=== PATIENT | female | born 1960 | race Caucasian/White ===

== ENCOUNTER 2017-05-05 19:05 | Emergency (ER) | payer BC ==
[~2017-05-05] VITALS: Ht 167.6 cm; Wt 75.7 kg
[~2017-05-05 19:05] MED LIST: ASPI-630 PO; LEVO75TA PO; OMEP20CA9 PO; SIMV40TA3 PO; methylfolate PO
--- NOTE | 2017-05-05 20:12 | PHYS DOC ---
Past Medical History Past Medical History: Cancer Additional Past Medical Histor: Breast CA Past Surgical History: Other Additional Past Surgical Histo: Port placement & removal, Bilat mastectomy, hysterectomy Alcohol Use: None Drug Use: None Adult General Chief Complaint Chief Complaint: MECHANICAL FALL HPI HPI Patient is a 56 year old female presents to the ED complaining of head injury x 1 hour ago. States she was walking into the movie and tripped outside over her feet and hit her face on the concrete. Describes the pain as sharp. Rates the pain as 6/10. Denies LOC, vision changes, n/v, dizziness, weakness, chest pain, shortness of breath, neck pain, or symptoms prior to fall. Patient does not take any blood thinners. Review of Systems Review of Systems Constitutional: Denies fever or chills [] Eyes: Denies change in visual acuity, redness, or eye pain [] HENT: Complains of nose pain. Denies nasal congestion or sore throat [] Respiratory: Denies cough or shortness of breath [] Cardiovascular: No additional information not addressed in HPI [] GI: Denies abdominal pain, nausea, vomiting, bloody stools or diarrhea [] : Denies dysuria or hematuria [] Musculoskeletal: Denies back pain or joint pain [] Integument: Denies rash or skin lesions [] Neurologic: Denies headache, focal weakness or sensory changes [] Endocrine: Denies polyuria or polydipsia [] All other systems were reviewed and found to be within normal limits, except as documented in this note. Current Medications Current Medications Current Medications Medications (Trade) Dose Ordered Sig/Willie Start Time Stop Time Status Last Admin Dose Admin Tramadol HCl (Ultram) 50 mg 1X ONCE 05/05/17 20:15 05/05/17 20:16 DC 05/05/17 20:11 50 MG Allergies Allergies Allergies Coded Allergies Type Severity Reaction Last Updated Verified meperidine Adverse Reaction Mild vomiting 03/15/17 Yes Physical Exam Physical Exam Constitutional: Well developed, well nourished, no acute distress, non-toxic appearance. [] HENT: Normocephalic, atraumatic, bilateral external ears normal, oropharynx moist, no oral exudates, ABRASION TO BRIDGE OF NOSE. NO REPAIRABLE LACERATION. MILD NASAL BONE TENDERNESS/SWELLING. NO SEPTAL HEMATOMA. [] Eyes: PERRLA, EOMI, conjunctiva normal, no discharge. [] Neck: Normal range of motion, no tenderness, supple, no stridor. [] Cardiovascular:Heart rate regular rhythm, no murmur [] Lungs & Thorax: Bilateral breath sounds clear to auscultation [] Abdomen: Bowel sounds normal, soft, no tenderness, no masses, no pulsatile masses. [] Skin: Warm, dry, no erythema, no rash. [] Back: No tenderness, no CVA tenderness. [] Extremities: No tenderness, no cyanosis, no clubbing, ROM intact, no edema. [] Neurologic: Alert and oriented X 3, normal motor function, normal sensory function, no focal deficits noted. [] Psychologic: Affect normal, judgement normal, mood normal. [] Current Patient Data Vital Signs Vital Signs Date Time Temp Pulse Resp B/P (MAP) Pulse Ox O2 Delivery O2 Flow Rate FiO2 05/05/17 20:40 79 16 96 05/05/17 19:15 97.6 Room Air 97.6 EKG EKG [] Radiology/Procedures Radiology/Procedures PROCEDURE: CT HEAD AND MAXILLOFACIAL WO CT HEAD AND MAXILLOFACIAL WO Clinical indications: fall head/nose injury COMPARISON: None available. NONCONTRAST HEAD CT COMPARISON: None available. Technique: Noncontrast axial cross sectional scanning of the head was performed. PQRS compliance Statement One or more of the following individualized dose reduction techniques were utilized for these studies: 1. Automated exposure control 2. Adjustment of the mA and/or kV according to patient size 3. Use of iterative reconstruction technique Findings: No acute intracranial hemorrhage or midline shift or mass-effect or hydrocephalus or extra-axial fluid collection is seen. No focal hypodense area or sulci effacement is seen to indicate an acute infarct or edema radiographically. No skull fracture or pneumocephalus is seen. No opacification of the mastoid sinuses or the middle ear cavities is seen. Impression: No acute intracranial abnormality is seen. CT STUDY OF THE MAXILLOFACIAL BONES WITHOUT CONTRAST TECHNIQUE: Noncontrast helical CT scanning of the maxillofacial bones was performed. Multiplanar 2-D reconstructions were generated. FINDINGS: There are nondepressed fractures of the anterior tip of the nasal bone on both sides. There is severe nasal septal deviation with the convexity pointed towards the right side. Zygoma and zygomatic arch is intact on both sides. The orbits and pterygoid plates and maxilla and nasal spine are intact. No opacification or air-fluid levels of the paranasal sinuses is seen. The mandible is intact. The temporomandibular joints are normally aligned. IMPRESSION: Nondepressed fracture of the tip of the nasal bone on both sides. Nasal septal deviation.[] Course & Med Decision Making Course & Med Decision Making Pertinent Labs and Imaging studies reviewed. (See chart for details) []Discussed imaging findings with patient. Patient's pain improved. Vital stable , no acute distress. Discussed symptomatic treatment. Tetanus up to date. Discussed follow-up with [facility] for further evaluation early next week. Provided contact information/education. Discussed reasons to return to the ED. Patient understands and agrees with plan. at bedside. Dragon Disclaimer Anika Disclaimer This electronic medical record was generated, in whole or in part, using a voice recognition dictation system. Departure Departure Impression: Primary Impression: Nasal bone fracture Disposition: 01 HOME, SELF-CARE Condition: IMPROVED Referrals: MEGAN CONN (PCP) PATSY GALARZA DDS Patient Instructions: Nasal Fracture Scripts Tramadol Hcl (TRAMADOL HCL) 50 Mg Tablet 1 TAB PO PRN Q6HRS, #12 TAB Prov: ANIKET BELLA 05/05/17 ANIKET BELLA May 05, 2017 20:12
[2017-05-05] MEDS ORDERED: traMADol 50 MG TABLET PO ONE (20:15)
--- NOTE | 2017-05-05 20:18 | RAD ---
CT HEAD AND MAXILLOFACIAL WO Clinical indications: fall head/nose injury COMPARISON: None available. NONCONTRAST HEAD CT COMPARISON: None available. Technique: Noncontrast axial cross sectional scanning of the head was performed. RS compliance Statement One or more of the following individualized dose reduction techniques were utilized for these studies: 1. Automated exposure control 2. Adjustment of the mA and/or kV according to patient size 3. Use of iterative reconstruction technique Findings: No acute intracranial hemorrhage or midline shift or mass-effect or hydrocephalus or extra-axial fluid collection is seen. No focal hypodense area or sulci effacement is seen to indicate an acute infarct or edema radiographically. No skull fracture or pneumocephalus is seen. No opacification of the mastoid sinuses or the middle ear cavities is seen. Impression: No acute intracranial abnormality is seen. CT STUDY OF THE MAXILLOFACIAL BONES WITHOUT CONTRAST TECHNIQUE: Noncontrast helical CT scanning of the maxillofacial bones was performed. Multiplanar 2-D reconstructions were generated. FINDINGS: There are nondepressed fractures of the anterior tip of the nasal bone on both sides. There is severe nasal septal deviation with the convexity pointed towards the right side. Zygoma and zygomatic arch is intact on both sides. The orbits and pterygoid plates and maxilla and nasal spine are intact. No opacification or air-fluid levels of the paranasal sinuses is seen. The mandible is intact. The temporomandibular joints are normally aligned. IMPRESSION: Nondepressed fracture of the tip of the nasal bone on both sides. Nasal septal deviation. Electronically signed by: Elias Ny MD (05/05/2017 8:14 PM) [facility]
[2017-05-05] MEDS ORDERED: TRAM50TA PO (20:26)
[2017-05-05 20:40] VITALS: BP 156/97
== END 2017-05-05 20:44 | disposition home or self-care (01) ==
LOC: ER 19:05
DX: S02.2XXA Fracture of nasal bones, initial encounter for closed fracture (principal); Z88.8 Allergy status to other drugs, medicaments and biological substances; Z90.710 Acquired absence of both cervix and uterus; Z90.13 Acquired absence of bilateral breasts and nipples; W22.8XXA Striking against or struck by other objects, initial encounter; Y93.01 Activity, walking, marching and hiking; Y92.89 Other specified places as the place of occurrence of the external cause; Y99.8 Other external cause status
CPT/HCPCS: 70450; 70486; 99284-25

== ENCOUNTER 2018-09-12 18:22 | Emergency (ER) | payer BC ==
[~2018-09-12] VITALS: Ht 167.6 cm; Wt 77.1 kg
[~2018-09-12 18:22] MED LIST changes: +OMEP20CA10 PO; -OMEP20CA9 PO; +TRAM50TA PO
[2018-09-12 18:29] VITALS: BP 163/96
--- NOTE | 2018-09-12 20:04 | PHYS DOC ---
Past Medical History Past Medical History: Cancer, Hypothyroid, Other Additional Past Medical Histor: Breast CA Past Surgical History: Other Additional Past Surgical Histo: Port placement & removal, Bilat mastectomy,BREAST IMPLANTS Alcohol Use: None Drug Use: None Adult General Chief Complaint Chief Complaint: EARACHE/EAR PAIN HPI HPI Patient is a 58 year old female who presents to the ED with the chief complaint of left ear pain. Patient states that the hip and has been present for the last 6 days. Patient denies cough, cold, congestion, sore throat. Review of Systems Review of Systems Constitutional: Denies fever or chills [] Eyes: Denies change in visual acuity, redness, or eye pain [] HENT: Complains of left ear pain. Respiratory: Denies cough or shortness of breath [] Cardiovascular: No additional information not addressed in HPI [] GI: Denies abdominal pain, nausea, vomiting, bloody stools or diarrhea [] : Denies dysuria or hematuria [] Musculoskeletal: Denies back pain or joint pain [] Integument: Denies rash or skin lesions [] Neurologic: Denies headache, focal weakness or sensory changes [] Endocrine: Denies polyuria or polydipsia [] All other systems were reviewed and found to be within normal limits, except as documented in this note. Allergies Allergies Allergies Coded Allergies Type Severity Reaction Last Updated Verified meperidine Adverse Reaction Mild vomiting 03/15/17 Yes Physical Exam Physical Exam Constitutional: Well developed, well nourished, no acute distress, non-toxic appearance. HENT: Normocephalic, atraumatic, normocaphalic, left ear has cerumen impaction Eyes: EOMI Neck: Normal range of motion, no tenderness, supple Cardiovascular:Heart rate regular rhythm, no murmur Resp: Bilateral breath sounds clear to auscultation Abdomen: Soft, no tenderness, no distension Skin: Warm, dry, no erythema, no rash. Back: No tenderness, no CVA tenderness. Extremities: No tenderness, ROM intact, no edema. Neurologic: Alert and oriented X 3 Current Patient Data Vital Signs Vital Signs Date Time Temp Pulse Resp B/P (MAP) Pulse Ox O2 Delivery O2 Flow Rate FiO2 09/12/18 18:29 98.8 82 18 163/96 (118) 96 Room Air 98.8 EKG EKG [] Radiology/Procedures Radiology/Procedures [] Course & Med Decision Making Course & Med Decision Making Irrigated left ear. Not much cerumen evacuated. Discussed plan of care with patient and family. Patient buy [id number] earwax removal medication. Discussed plan of care with patient. Patient is instructed to follow up with PCP in one to 2 days. Appropriate discharge instructions given to patient to return to the ED or to seek immediate medical evaluation. Dragon Disclaimer Dragon Disclaimer This electronic medical record was generated, in whole or in part, using a voice recognition dictation system. Departure Departure Referrals: MEGAN CONN (PCP) JOCELYNE LANIER DO September 12, 2018 20:04
== END 2018-09-12 20:14 | disposition home or self-care (01) ==
LOC: ER 18:22
DX: H61.22 Impacted cerumen, left ear (principal); E03.9 Hypothyroidism, unspecified; Z88.1 Allergy status to other antibiotic agents
CPT/HCPCS: 69209; 99282; 99283-25

== ENCOUNTER 2021-09-06 06:22 | Emergency (ER) | payer BC ==
[~2021-09-06] VITALS: Ht 167.6 cm; Wt 70.0 kg
[~2021-09-06 06:22] MED LIST changes: -LEVO75TA PO; +LEVO75TA90 PO; -OMEP20CA10 PO; +OMEP20CA16 PO; +SIMV40TA18 PO; -SIMV40TA3 PO
[2021-09-06 06:30] VITALS: BP 116/68
--- NOTE | 2021-09-06 06:46 | ED.ADGEN ---
Past Medical History Past Medical History: Cancer, Hypothyroid, Other Additional Past Medical Histor: BREAST CANCER Past Surgical History: Hysterectomy Additional Past Surgical Histo: Port placement & removal, Bilat mastectomy,BREAST IMPLANTS Smoking Status: Never Smoker Alcohol Use: None Drug Use: None General Adult EDM: Chief Complaint: BLOOD IN URINE HPI: HPI: Patient is a 61-year-old female who arrives ambulatory to the emergency department complaining of dysuria as well as pelvic pain for the past 3 days. Patient reports she noticed that her discomfort began late Sunday and early Sunday. Patient stated she was concerned she may be developing urinary tract infection and started drinking cranberry juice to try to alleviate her discomfort. Patient reports that helped however she has had continued pain and had an appointment with her primary care physician later today however she states when she awoke and experienced blood in her urine she became concerned and decided to seek out immediate evaluation. The patient reports she did have some slight low back discomfort last night however that is not seem to bother her today. She denies any abdominal pain. She further denies any fevers or nausea. She is awake, alert and nontoxic-appearing Review of Systems: Review of Systems: Constitutional: Denies fever or chills. [] Eyes: Denies change in visual acuity. [] HENT: Denies nasal congestion or sore throat. [] Respiratory: Denies cough or shortness of breath. [] Cardiovascular: Denies chest pain or edema. [] GI: Denies abdominal pain, nausea, vomiting, bloody stools or diarrhea. [] : Reports dysuria as well as hematuria and suprapubic/pelvic pain. [] Musculoskeletal: Denies back pain or joint pain. [] Integument: Denies rash. [] Neurologic: Denies headache, focal weakness or sensory changes. [] Endocrine: Denies polyuria or polydipsia. [] Lymphatic: Denies swollen glands. [] Psychiatric: Denies depression or anxiety. [] Allergies: Allergies: Allergies Coded Allergies Type Severity Reaction Last Updated Verified meperidine Adverse Reaction Mild vomiting 03/15/17 Yes Physical Exam: PE: Constitutional: Well developed, well nourished, no acute distress, non-toxic appearance. [] HENT: Normocephalic, atraumatic, bilateral external ears normal, oropharynx moist, no oral exudates, nose normal. [] Eyes: PERRLA, EOMI, conjunctiva normal, no discharge. [] Neck: Normal range of motion, no tenderness, supple, no stridor. [] Cardiovascular:Heart rate regular rhythm, no murmur [] Lungs & Thorax: Bilateral breath sounds clear to auscultation [] Abdomen: Bowel sounds normal, soft, no tenderness, no masses, no pulsatile masses. [] Skin: Warm, dry, no erythema, no rash. [] Back: No tenderness, no CVA tenderness. [] Extremities: No tenderness, no cyanosis, no clubbing, ROM intact, no edema. [] Neurologic: Alert and oriented X 3, normal motor function, normal sensory function, no focal deficits noted. [] Psychologic: Affect normal, judgement normal, mood normal. [] Current Patient Data: Labs: Laboratory Tests Test 09/06/21 06:41 Urine Collection Type Unknown Urine Color (Auto) Light orange Urine Turbidity Turbid Urine pH (Auto) 6.0 (<5.0-8.0) Urine Specific [place] 1.011 (1.000-1.030) Urine Protein (Auto) 100 mg/dL (Negative) Urine Glucose (Auto)(UA) Negative mg/dL (Negative) Urine Ketones (Auto) Negative mg/dL (Negative) Urine Blood (Auto) Large (Negative) Urine Nitrite Positive (Negative) Urine Bilirubin (Auto) Negative (Negative) Urine Urobilinogen (Auto) Normal mg/dL (Normal) Urine Leukocyte Esterase (Auto) Large (Negative) Urine RBC Field obscured /HPF (0-2) Urine WBC Tntc /HPF (0-4) Urine Bacteria Moderate /HPF (0-FEW) Vital Signs: Vital Signs Date Time Temp Pulse Resp B/P (MAP) Pulse Ox O2 Delivery O2 Flow Rate FiO2 09/06/21 06:30 98.4 89 16 116/68 (84) 100 Room Air 98.4 EKG: EKG: [] Heart Score: C/O Chest Pain: No Risk Factors: Risk Factors: DM, Current or recent (<one month) smoker, HTN, HLP, family h istory of CAD, obesity. Risk Scores: Score 0 - 3: 2.5% MACE over next 6 weeks - Discharge Home Score 4 - 6: 20.3% MACE over next 6 weeks - Admit for Clinical Observation Score 7 - 10: 72.7% MACE over next 6 weeks - Early Invasive Strategies Radiology/Procedures: Radiology/Procedures: [] Course & Med Decision Making: Course & Med Decision Making Pertinent Labs and Imaging studies reviewed. (See chart for details) [] Anika Disclaimer: Anika Disclaimer: This electronic medical record was generated, in whole or in part, using a voice recognition dictation system. Departure Departure Impression: Primary Impression: UTI (urinary tract infection) Disposition: HOME / SELF CARE / HOMELESS Condition: STABLE Referrals: MEGAN CONN (PCP) Patient Instructions: Urinary Tract Infection Scripts Phenazopyridine Hcl (PYRIDIUM) 100 Mg Tablet 100 MG PO TID for dysuria for 2 Days, #6 TAB Prov: GABINO OSBORN DO 09/06/21 Cephalexin (KEFLEX) 500 Mg Capsule 500 MG PO QID for 7 Days, #28 CAP Prov: GABINO OSBORN DO 09/06/21 GABINO OSBORN DO Sep 06, 2021 06:45
[2021-09-06 07:04] LABS: BACTERIA,URINE MODERATE /HPF (0-FEW); RBC,URINE FIELD OBSCURED /HPF (0-2); WBC,URINE TNTC /HPF (0-4)
[2021-09-06] MEDS ORDERED: CEPH500C PO (07:09)
[2021-09-06] MEDS ORDERED: PHEN100T82 PO (07:09)
== END 2021-09-06 07:24 | disposition home or self-care (01) ==
LOC: ER 06:22
DX: N39.0 Urinary tract infection, site not specified (principal); E03.9 Hypothyroidism, unspecified; Z90.710 Acquired absence of both cervix and uterus; Z88.1 Allergy status to other antibiotic agents
CPT/HCPCS: 81001; 87077; 87086; 87186; 99283